=== PATIENT | female | born 1990 | race Caucasian/White ===

== ENCOUNTER 2022-06-07 08:38 | Emergency (ER) | payer OTHER ==
[~2022-06-07] VITALS: Ht 170.2 cm; Wt 63.5 kg
--- NOTE | 2022-06-07 09:05 | NUR ---
31 y/o female walked into the ED for possible abscess. Pt states it has been going on for a few days with increased pain. Pt taking ibuprofen with little help and tub baths with little help.
--- NOTE | 2022-06-07 09:12 | NUR ---
Female spray painter accompanied female patient for external pelvic exam.
[2022-06-07] MEDS ORDERED: AMOX-430 PO (09:19)
[2022-06-07] MEDS ORDERED: SULF1TAB48 PO (09:19)
[2022-06-07 09:24] VITALS: BP 119/71
--- NOTE | 2022-06-07 09:24 | NUR ---
Patient discharged to home in stable condition. Written and verbal after care instructions given. Patient verbalizes understanding of instructions. Stressed follow up or return to ER for worsening s/s.
== END 2022-06-07 09:26 | disposition home or self-care (01) ==
LOC: ER 08:42
DX: N75.0 Cyst of Bartholin's gland (principal)
CPT/HCPCS: A4663